=== PATIENT | male | born 1980 | race Two or more races ===

== ENCOUNTER 2021-08-25 07:55 | Day surgery (SDC) | payer BC, MEDICAID ==
[~2021-08-25 07:55] MED LIST: Lactated Ringers 1,000 ML IV SCH
[2021-08-25] MEDS ORDERED: Lidocaine 2% 5 ML SDV ONE (08:15)
[2021-08-25] MEDS ORDERED: Propofol 200 MG/20 ML SDV ONE ×2 (08:16→08:32)
[2021-08-25] MEDS ORDERED: fentaNYL 100 MCG/2 ML SDV ONE (08:16)
--- NOTE | 2021-08-25 08:28 | PCM.PREANE ---
Preanesthetic Assessment - Anesthesia/Transfusion/Family Hx Anesthesia History: No Prior Anesthesia Transfusion History: No Prior Transfusion(s) - Review of Systems General: No Symptoms Pulmonary: No Symptoms Cardiovascular: No Symptoms Gastrointestinal: No Symptoms, Nausea, Vomiting Neurological: No Symptoms Other: Reports: None - Physical Assessment NPO Status Date: 08/25/21 NPO Status Time: 00:00 Vital Signs: Last Vital Signs Temp 97.5 F 08/25/21 08:00 Pulse 104 H 08/25/21 08:00 Resp 16 08/25/21 08:00 BP 147/84 H 08/25/21 08:00 Pulse Ox 96 08/25/21 08:00 Height: 5 ft 6 in Weight: 287 lb ASA Class: 2 Mental Status: Alert & Oriented x3 Airway Class: Mallampati = 2 Dentition: Reports: Normal Dentition Thyro-Mental Finger Breadths: 3 Mouth Opening Finger Breadths: 3 ROM/Head Extension: Full Lungs: Clear to Auscultation, Normal Respiratory Effort Cardiovascular: Regular Rate, Regular Rhythm - Allergies Allergies/Adverse Reactions: Allergies Allergy/AdvReac Type Severity Reaction Status Date / Time No Known Allergies Allergy Verified 08/19/21 12:32 - Acknowledgements Anesthesia Type Planned: General Anesthesia Pt an Appropriate Candidate for the Planned Anesthesia: Yes Alternatives and Risks of Anesthesia Discussed w Pt/Guardian: Yes Pt/Guardian Understands and Agrees with Anesthesia Plan: Yes PreAnesthesia Questionnaire HEENT History: Reports: Other (See Below) Other HEENT History: uses reading glasses Cardiovascular History: Reports: None Respiratory History: Reports: Asthma, Other (See Below) Other Respiratory History: just did a sleep study- no results yet, had Asthma as a child- no symptoms or inhalers now Gastrointestinal History: Reports: GERD Genitourinary History: Reports: None Musculoskeletal History: Reports: None Neurological History: Reports: Migraines Psychiatric History: Reports: None Endocrine/Metabolic History: Reports: Obesity/BMI 30+ Hematologic History: Reports: None Immunologic History: Reports: None Oncologic (Cancer) History: Reports: None Dermatologic History: Reports: None - Past Surgical History Head Surgeries/Procedures: Reports: None Male Surgical History: Reports: Vasectomy - SUBSTANCE USE Tobacco Use Status *Q: Never Tobacco User Recreational Drug Use History: No - HOME MEDS Home Medications: Home Meds . [No Known Home Meds] 08/19/21 [History] - CURRENT (IN HOUSE) MEDS Current Meds: Current Medications Lactated Ringer's (Ringers, Lactated) 1,000 mls @ 125 mls/hr IV ASDIRECTED [facility] Last Admin: 08/25/21 08:19 Dose: 125 mls/hr Documented by: Discontinued Medications Fentanyl (Fentanyl 100 Mcg/2 Ml Sdv) Confirm Administered Dose 100 mcg .ROUTE .STK-MED ONE Stop: 08/25/21 08:17 Lidocaine (Lidocaine 2% 5 Ml Sdv) Confirm Administered Dose 5 ml .ROUTE .STK-MED ONE Stop: 08/25/21 08:16 Propofol (Propofol 200 Mg/20 Ml Sdv) Confirm Administered Dose 200 mg .ROUTE .STK-MED ONE Stop: 08/25/21 08:17
--- NOTE | 2021-08-25 09:09 | PCM.OPNOTE ---
- General Post-Op/Procedure Note Date of Surgery/Procedure: 08/25/21 Operative Procedure(s): Esophagogastroduodenoscopy with gastric and distal esophageal biopsies Pre Op Diagnosis: Progressive nocturnal gastroesophageal reflux with persistent cough Post-Op Diagnosis: Mild to moderate gastritis. Small hiatal hernia with distal esophagitis. Anesthesia Technique: MAC (ASA II) Primary Surgeon: Jermain Jose Condition: Good Free Text/Narrative:: DICTATION [id number] CPT CODE [id number]
[2021-08-25] MEDS ORDERED: Lactated Ringers 1,000 ML IV SCH (09:15)
--- NOTE | 2021-08-25 09:16 | PCM.POSTAN ---
POST ANESTHESIA ASSESSMENT - MENTAL STATUS Mental Status: Alert, Oriented - VITAL SIGNS Vital Signs: Last Vital Signs Temp 99.0 F 08/25/21 09:08 Pulse 100 08/25/21 09:08 Resp 14 08/25/21 09:08 BP 104/55 L 08/25/21 09:08 Pulse Ox 92 L 08/25/21 09:08 - RESPIRATORY Respiratory Status: Respiratory Rate WNL, Airway Patent, O2 Saturation Stable - CARDIOVASCULAR CV Status: Pulse Rate WNL, Blood Pressure Stable - GASTROINTESTINAL GI Status: No Symptoms - POST OP HYDRATION Hydration Status: Adequate & Stable
--- NOTE | 2021-08-25 09:17 | PCM48HPAN ---
Post Anesthesia Note - EVALUATION WITHIN 48HRS OF ANESTHETIC Vital Signs in Normal Range: Yes Patient Participated in Evaluation: Yes Respiratory Function Stable: Yes Airway Patent: Yes Cardiovascular Function Stable: Yes Hydration Status Stable: Yes Pain Control Satisfactory: Yes Nausea and Vomiting Control Satisfactory: Yes Mental Status Recovered: Yes Vital Signs: Last Vital Signs Temp 99.0 F 08/25/21 09:08 Pulse 100 08/25/21 09:08 Resp 14 08/25/21 09:08 BP 104/55 L 08/25/21 09:08 Pulse Ox 92 L 08/25/21 09:08
--- NOTE | 2021-08-26 07:49 | OR ---
SURGEON: Jermain Jose M.D. DATE OF PROCEDURE: 08/25/2021 OPERATION PERFORMED: Esophagogastroduodenoscopy with gastric and distal esophageal biopsies. PRIMARY SURGEON: Jermain Jose M.D. ANESTHESIA: MAC. ASA CLASSIFICATION: II. PREOPERATIVE DIAGNOSIS: Progressive nocturnal gastroesophageal reflux with coughing. POSTOPERATIVE DIAGNOSES: 1. Mild to moderate distal gastritis. 2. Hiatal hernia with esophagitis. DESCRIPTION OF PROCEDURE: The patient was taken to the endoscopy room and positioned on the endoscopy table in the supine position. Time-out was called for appropriate identification of the patient and procedure. Monitored anesthesia care was provided. The gastroscope was inserted through the bite block and advanced into the oropharynx and subsequently through the esophagus and stomach into the duodenum without difficulty. Examination was now carried out in a retrograde fashion. The duodenum showed no acute inflammatory changes or ulcerations. The stomach did show mild to moderate gastritis without ulceration. Antral biopsies were obtained to rule out Helicobacter pylori. The gastroscope was retroflexed to visualize the proximal stomach. No tumors, polyps, or ulcerations were noted. The gastroscope was then straightened and slowly withdrawn. The patient did have a small hiatal hernia and did show distal esophagitis. Biopsies of the Z-line were obtained. No acute ulcerations were noted. The esophagus itself demonstrated good contractility. No mid or proximal lesions were identified. The vocal cords were visualized as the scope was withdrawn and noted to move symmetrically. No vocal cord lesions were identified. The gastroscope was then removed with the patient having tolerated the procedure well. He was taken to recovery room in stable condition. JUSTIN / VINCE /[id number]
== END 2021-08-25 09:50 | disposition home or self-care (01) ==
LOC: MW.SDS 07:55
PROVIDERS: ATTEND Surgery
DX: K29.50 Unspecified chronic gastritis without bleeding (principal); B96.81 Helicobacter pylori [H. pylori] as the cause of diseases classified elsewhere; K31.89 Other diseases of stomach and duodenum; K44.9 Diaphragmatic hernia without obstruction or gangrene; K21.00 Gastro-esophageal reflux disease with esophagitis, without bleeding; G47.33 Obstructive sleep apnea (adult) (pediatric); E66.01 Morbid (severe) obesity due to excess calories; Z98.890 Other specified postprocedural states; Z68.42 Body mass index [BMI] 45.0-49.9, adult; Z79.899 Other long term (current) drug therapy
CPT/HCPCS: 43239; J2704; J3010; J7120; 00731